=== PATIENT | female | born 2000 | race Caucasian/White ===

== ENCOUNTER 2023-10-01 11:27 | Emergency (ER) | payer BC, OTHER ==
[2023-10-01 12:30] LABS: EOSINOPHILS % (AUTO) 0.1 %; HCT - HEMATOCRIT 33.9 % (37.0-47.0); HGB - HEMOGLOBIN 10.2 g/dL (12.0-16.0); LYMPHOCYTES # (AUTO) 1.9 10^3/uL (1.5-3.5); LYMPHOCYTES % (AUTO) 18.4 %; MEAN CORPUSCULAR HGB CONC 30.1 g/dL (32.0-36.0); MEAN CORPUSCULAR VOLUME 79.8 fL (81.0-99.0); MEAN PLATELET VOLUME 10.8 fL (7.9-10.8); MONOCYTES # (AUTO) 1.1 10^3/uL (0.0-1.0); MONOCYTES % (AUTO) 10.8 %; NEUTROPHILS # (AUTO) 7.2 10^3/uL (1.5-6.6); NEUTROPHILS % (AUTO) 70.3 %; PLT - PLATELET COUNT 267 10^3/uL (130-450); RED BLOOD COUNT 4.25 10^6/uL (4.20-5.40); RED CELL DISTRIBUTION WIDTH 16.5 % (12.0-15.0); WHITE BLOOD COUNT 10.2 x10^3/uL (4.8-10.8)
[2023-10-01 12:33] LABS: BILIRUBIN,URINE NEGATIVE (NEGATIVE); GLUCOSE, URINE (UA) NEGATIVE (NEGATIVE); KETONES,URINE (UA) NEGATIVE (NEGATIVE); LEUKOCYTE ESTERASE, URINE LARGE (NEGATIVE); NITRITE,URINE POSITIVE (NEGATIVE); OCCULT BLOOD,URINE SMALL (NEGATIVE); PROTEIN,URINE 100 mg/dL (NEGATIVE); UROBILINOGEN,URINE 0.2 (NORMAL) E.U./dL (NORMAL)
[2023-10-01 12:35] LABS: CLARITY,URINE CLOUDY (CLEAR)
[2023-10-01 12:36] LABS: HCG UR QUAL NEGATIVE
[2023-10-01 12:40] LABS: BACTERIA,URINE Moderate /HPF (None Seen); SQUAMOUS EPITHELIAL CELL,UR RARE Squamous (<= Few); WBC CLUMPS,URINE PRESENT; WBC,URINE >25 /HPF (0-5)
[2023-10-01 12:51] LABS: ALBUMIN 4.1 g/dL (3.2-5.5); ALBUMIN/GLOBULIN RATIO 1.4 (1.0-2.2); BILIRUBIN,TOTAL 0.3 mg/dL (0.2-1.0); CALCIUM 9.5 mg/dL (8.5-10.3); CREATININE 0.8 mg/dL (0.6-1.3); POTASSIUM 3.9 mmol/L (3.5-4.5); TOTAL PROTEIN 7.1 g/dL (6.4-8.9)
--- NOTE | 2023-10-01 13:43 | ED Physician Documentation ---
History of Present Illness - Stated complaint Stated Complaint: LOWER BACK PX,LAGOS,NAUSEA - Chief complaint Chief Complaint: Abd Pain - Additonal information Additional information: 23-year-old female with ulcerative colitis presents emergency department for lower back pain, dysuria, fevers and chills. Patient [place] she said that she is forced to hold her urine for a very long period of time she said that she is feeling UTI symptoms now for about the last 2 weeks today started to experience bilateral flank pain generalized malaise and fevers. PD PAST MEDICAL HISTORY - Past Medical History Past Medical History: Yes GI: Ulcerative colitis - Past Surgical History Past Surgical History: No - Present Medications Home Medications: Ambulatory Orders Medication Instructions Recorded Confirmed Escitalopram [Lexapro] 10 mg PO DAILY 10/01/23 10/01/23 Naproxen [EC-Naproxen] 500 mg PO BID PRN #28 cap 10/01/23 Sulfamethox/Trimeth 800/160 1 tablet PO BID 10 Days #20 tablet 10/01/23 [Bactrim Ds] Upadacitinib [Rinvoq ER] 15 mg PO DAILY 10/01/23 10/01/23 - Allergies Allergies/Adverse Reactions: Allergies Allergy/AdvReac Type Severity Reaction Status Date / Time morphine Allergy Itching Verified 10/01/23 13:05 - Social History Does the pt smoke?: No Smoking Status: Never smoker Does the pt drink ETOH?: No Does the pt have substance abuse?: No PD ED PE NORMAL - Vitals Vital signs reviewed: Yes - General General: Alert and oriented X 3, No acute distress, Well developed/nourished - Cardiac Cardiac: RRR, No murmur, No gallop - Respiratory Respiratory: No respiratory distress, Clear bilaterally - Abdomen Abdomen: Other (Suprapubic tenderness) - Back Back: Other (Bilateral CVA tenderness) - Derm Derm: Normal color, Warm and dry, No rash - Extremities Extremities: No deformity, No edema - Psych Psych: Normal mood, Normal affect Results - Vitals Vitals: Vital Signs - 24 hr 10/01/23 10/01/23 10/01/23 11:54 13:58 15:15 Temperature 36.3 C L Heart Rate 87 64 87 Respiratory 18 16 16 Rate Blood Pressure 97/61 97/54 L 94/72 O2 Saturation 97 100 98 Oxygen O2 Source Room air - Labs Labs: Laboratory Tests 10/01/23 10/01/23 10/01/23 12:20 12:20 12:25 WBC 10.2 RBC 4.25 Hgb 10.2 L Hct 33.9 L MCV 79.8 L MCH 24.0 L MCHC 30.1 L RDW 16.5 H Plt Count 267 MPV 10.8 Neut # (Auto) 7.2 H Lymph # (Auto) 1.9 [place] # (Auto) 1.1 H Eos # (Auto) 0.0 Baso # (Auto) 0.0 Absolute Nucleated RBC 0.00 Nucleated RBC % 0.0 Sodium 134 L Potassium 3.9 Chloride 104 Carbon Dioxide 25 Anion Gap 5.0 L BUN 9 Creatinine 0.8 Estimated GFR (MDRD) 89 Glucose 108 H Calcium 9.5 Total Bilirubin 0.3 AST 16 ALT 9 L Alkaline Phosphatase 34 L Total Protein 7.1 Albumin 4.1 Globulin 3.0 Albumin/Globulin Ratio 1.4 Lipase 20 Urine Color YELLOW Urine Clarity CLOUDY Urine pH 6.0 Ur Specific [place] 1.020 Urine Protein 100 H Urine Glucose (UA) NEGATIVE Urine Ketones NEGATIVE Urine Occult Blood SMALL H Urine Nitrite POSITIVE H Urine Bilirubin NEGATIVE Urine Urobilinogen 0.2 (NORMAL) Ur Leukocyte Esterase LARGE H Urine RBC 6-10 H Urine WBC >25 H Urine WBC Clumps PRESENT Ur Squamous Epith Cells RARE Squamous Urine Bacteria Moderate H Ur Microscopic Review INDICATED Urine Culture Comments INDICATED Urine HCG, Qual NEGATIVE PD Medical Decision Making - ED course ED course: 23-year-old female presents emergency department for Bilateral CVA tenderness. Labs are complete in the emergency department she does not have any leukocytosis mild anemia hemoglobin 10.2, hematocrit 33.9 neutrophils slightly elevated at 7.2. No other significant electrolyte abnormalities. Urine was positive for nitrates and leukocytes as well as large amount of WBCs. Urine was sent for further cultures, hCG negative. I believe that the pain patient is experiencing is due to pyelonephritis. She was given a liter of IV fluids here in the emergency department one-time dose of IV Rocephin and one-time dose of oxycodone for the pain and discomfort that she is experiencing. Patient says that she has received IV fluids as well as IV antibiotics she is actually already starting to feel quite a bit better. Prescription of Bactrim was sent to patient's preferred pharmacy for her pyelonephritis. She is given strict ER return precautions and all questions have been answered safe for discharge. Departure - Departure Disposition: 01 Home, Self Care Clinical Impression: Pyelonephritis UTI (urinary tract infection) Qualifiers: Urinary tract infection type: acute pyelonephritis Qualified Code(s): N10 - Acute pyelonephritis Instructions: Urinary Tract Infecs Women, Pyelonephritis Dc Prescriptions: Sulfamethox/Trimeth 800/160 [Bactrim Ds] 1 tablet PO BID 10 Days #20 tablet Naproxen [EC-Naproxen] 500 mg PO BID PRN #28 cap PRN Reason: Pain 5-7 Comments: Thank you for trusting us with your care. We have found that you have a urinary tract infection that has advanced your kidneys you have been diagnosed with something called a pyelonephritis. We have sent your urine for culture as it will take up to 2 days for the results to come back we will call you if need to change antibiotics. We gave you a one-time dose of Rocephin here in the emergency department and I am starting you on a medication called Bactrim that you will take twice a day for the next 10 days. For your pain I have prescribed you medication called naproxen you can take 500 mg every 12 hours for pain and discomfort. With starting the antibiotics your pain should significantly improve. He can also take 1000 mg of Tylenol every 8 hours. Make sure that you are drinking plenty of water please help with your primary care provider. Please come back to the emergency department for having any worsening signs or symptoms including fevers or chills, worsening back pain or any other concerning symptoms. Wishing you speedy recovery. Forms: PCP List Discharge Date/Time: 10/01/23 15:15
[2023-10-01] MEDS: SODIUM CHLORIDE 0.9% 1,000 ML IV ONE (13:54)
[2023-10-01] MEDS: cefTRIAXone 1 GM in SODIUM CHLORIDE 0.9% MINIBAG 100 ML IV STA (13:56)
[2023-10-01] MEDS: KETOROLAC 30 MG/ML VIAL IVP STA (13:57)
[2023-10-01] MEDS: ACETAMINOPHEN 325 MG TABLET PO STA (15:08)
[2023-10-01] MEDS: oxyCODONE 5 MG TABLET PO STA (15:08)
[2023-10-01 15:30] VITALS: BP 94/72; O2SAT 98
[2023-10-01] MEDS ORDERED: LORazepam 2 MG/ML VIAL IVP STA (21:51)
[2023-10-01] MEDS ORDERED: HALOPERIDOL 5 MG/ML VIAL IVP STA (21:52)
== END 2023-10-01 15:15 | disposition home or self-care (01) ==
LOC: ED 11:27
DX: N39.0 Urinary tract infection, site not specified (principal); N12 Tubulo-interstitial nephritis, not specified as acute or chronic
CPT/HCPCS: 36415; 80053; 81001; 81025; 83690; 85025; 87086; 96365; 96375; 99283; 99284; A9270; 81003; 87077; 87181

== ENCOUNTER 2023-10-19 06:20 | Emergency (ER) | payer BC ==
[2023-10-19 07:19] LABS: ALBUMIN 4.3 g/dL (3.2-5.5); ALBUMIN/GLOBULIN RATIO 1.5 (1.0-2.2); BILIRUBIN,TOTAL 0.4 mg/dL (0.2-1.0); CALCIUM 9.9 mg/dL (8.5-10.3); CREATININE 0.8 mg/dL (0.6-1.3); POTASSIUM 3.3 mmol/L (3.5-4.5); TOTAL PROTEIN 7.1 g/dL (6.4-8.9)
--- NOTE | 2023-10-19 07:25 | ED Physician Documentation ---
PD HPI NVD - Stated complaint Stated Complaint: VOMITING/STOMACH PX - Chief complaint Chief Complaint: Abd Pain - History obtained from History obtained from: Patient - History of Present Illness Timing - onset: How many hours ago (within the past 2-3 hours, onset of cramping pain and nausea with onset of vomiting just briefly ago while in ED with friend for similar symptoms.) Timing - duration: Hours Timing - details: Abrupt onset, Still present Contributing factors: No: Bad food, Travel Improved by: No: Vomiting Similar symptoms before: Has not had sx before Review of Systems Constitutional: denies: Fever, Chills GI: denies: Diarrhea, Bloody / black stool Neurologic: denies: Focal weakness, Near syncope PD PAST MEDICAL HISTORY - Past Medical History Cardiovascular: None Respiratory: None GI: Ulcerative colitis - Past Surgical History Past Surgical History: No - Present Medications Home Medications: Ambulatory Orders Medication Instructions Recorded Confirmed Escitalopram [Lexapro] 10 mg PO DAILY 10/01/23 10/01/23 Naproxen [EC-Naproxen] 500 mg PO BID PRN #28 cap 10/01/23 Sulfamethox/Trimeth 800/160 1 tablet PO BID 10 Days #20 tablet 10/01/23 [Bactrim Ds] Upadacitinib [Rinvoq ER] 15 mg PO DAILY 10/01/23 10/01/23 Famotidine [Pepcid] 20 mg PO DAILY #20 tablet 10/19/23 Ondansetron Odt [Zofran] 4 mg TL Q6H PRN #20 tablet 10/19/23 Tramadol HCl 100 mg PO Q8H PRN #15 tablet 10/19/23 - Allergies Allergies/Adverse Reactions: Allergies Allergy/AdvReac Type Severity Reaction Status Date / Time morphine Allergy Itching Verified 10/01/23 13:05 - Social History Does the pt smoke?: No Smoking Status: Never smoker Does the pt drink ETOH?: No Does the pt have substance abuse?: No PD ED PE NORMAL - Vitals Vital signs reviewed: Yes - General General: Alert and oriented X 3, Well developed/nourished - HEENT HEENT: Ears normal, Pharynx benign - Neck Neck: Supple, no meningeal sign, No adenopathy - Cardiac Cardiac: RRR, No murmur - Respiratory Respiratory: Clear bilaterally - Abdomen Abdomen: Soft, Non tender, Non distended - Derm Derm: Normal color Results - Vitals Vitals: Oxygen O2 Source Room air - Labs Labs: Laboratory Tests 10/19/23 10/19/23 06:53 06:53 WBC 5.6 RBC 4.09 L Hgb 10.0 L Hct 32.6 L MCV 79.7 L MCH 24.4 L MCHC 30.7 L RDW 15.7 H Plt Count 330 MPV 11.4 H Neut # (Auto) 2.8 Lymph # (Auto) 2.4 [place] # (Auto) 0.4 Eos # (Auto) 0.0 Baso # (Auto) 0.0 Absolute Nucleated RBC 0.00 Nucleated RBC % 0.0 Sodium 138 Potassium 3.3 L Chloride 106 Carbon Dioxide 23 Anion Gap 9.0 BUN 14 Creatinine 0.8 Estimated GFR (MDRD) 89 Glucose 113 H Calcium 9.9 Total Bilirubin 0.4 AST 18 ALT 14 Alkaline Phosphatase 40 L Total Protein 7.1 Albumin 4.3 Globulin 2.8 Albumin/Globulin Ratio 1.5 Lipase 32 PD Medical Decision Making - ED course Complexity details: re-evaluated patient (feeling improved with IV fluids and toradol, zofran. ), considered differential (food poisoning vs viral GE. No focal tenderness to sugest GB, appy, obstruction, etc. ), d/w patient ED course: The patient started abruptly with upper to diffuse abdominal crampy pain just the last couple of hours. Associated with nausea and vomiting. She had a formed stool yesterday. Denies diarrhea as of yet but feels some lower cramping. History of ulcerative colitis in the past but she states the onset of that is typically a little more progressive and mid to lower abdomen. Her friend is here in the ER with also some abdominal pain and vomiting. The patient's assumption is viral enteritis or food related. At this point she appears fairly uncomfortable and holding an emesis bag. We can most likely be most effective with starting an IV and giving a combination of the antiemetic and pain medicine along with some anti-inflammatory. Her abdominal exam is nonfocal tenderness but more to the upper. Shared decision was to defer imaging at this point as she does not feel it is her ulcerative colitis at this point. Departure - Departure Disposition: 01 Home, Self Care Clinical Impression: Abdominal cramping, Nausea and vomiting Condition: Stable Instructions: ED Food Poison Or Gastroenteritis Prescriptions: Famotidine [Pepcid] 20 mg PO DAILY #20 tablet Tramadol HCl 100 mg PO Q8H PRN #15 tablet PRN Reason: Pain 5-7 Ondansetron Odt [Zofran] 4 mg TL Q6H PRN #20 tablet PRN Reason: Nausea / Vomiting Comments: Presume a viral stomach flu. There could become some diarrhea as well. Small frequent fluids and bland food initially. Ondansetron every 6 hours if needed for nausea and vomiting. Tylenol every 4-6 hours as needed for pains and to that add tramadol every 6 hours if needed for worse pain. You said tramadol is worked well for you in the past. Given the irritation of the stomach, it could be reasonable to go with an acid reducing medicine such as famotidine daily for a week or so. I sent your prescriptions to the [facility] pharmacy in [place]. I did write for a goodly amount of the ondansetron/Zofran in case this is a more prolonged illness. Stomach flu symptoms can last 3 to 5 days. Hopefully this will be more of a day or 2 process and certainly there would be more true if it is of food related/food poisoning. Return if not improved well or worsening symptoms again. Even though this is not feeling like your ulcerative colitis, a gastroenteritis from food or viral can trigger your UC so be wary and return if needed. Forms: PCP List Discharge Date/Time: 10/19/23 09:43
[2023-10-19 07:29] LABS: BASOPHILS % (AUTO) 0.4 %; EOSINOPHILS % (AUTO) 0.4 %; HCT - HEMATOCRIT 32.6 % (37.0-47.0); LYMPHOCYTES # (AUTO) 2.4 10^3/uL (1.5-3.5); MEAN CORPUSCULAR HEMOGLOBIN 24.4 pg (27.0-31.0); MEAN CORPUSCULAR HGB CONC 30.7 g/dL (32.0-36.0); MEAN CORPUSCULAR VOLUME 79.7 fL (81.0-99.0); MEAN PLATELET VOLUME 11.4 fL (7.9-10.8); MONOCYTES # (AUTO) 0.4 10^3/uL (0.0-1.0); MONOCYTES % (AUTO) 7.5 %; NEUTROPHILS # (AUTO) 2.8 10^3/uL (1.5-6.6); NEUTROPHILS % (AUTO) 49.3 %; PLT - PLATELET COUNT 330 10^3/uL (130-450); RED BLOOD COUNT 4.09 10^6/uL (4.20-5.40); RED CELL DISTRIBUTION WIDTH 15.7 % (12.0-15.0); WHITE BLOOD COUNT 5.6 x10^3/uL (4.8-10.8)
[2023-10-19] MEDS: ONDANSETRON 4 MG/2 ML VIAL IVP STA (07:40)
[2023-10-19] MEDS: HYDROmorphone 1 MG/ML CARPUJECT IVP STA (07:40)
[2023-10-19] MEDS: KETOROLAC 15 MG/ML VIAL IVP STA (07:40)
[2023-10-19] MEDS: SODIUM CHLORIDE 0.9% 1,000 ML IV STA (07:41)
[2023-10-19 08:52] VITALS: BP 103/67; O2SAT 98
== END 2023-10-19 09:43 | disposition home or self-care (01) ==
LOC: ED 06:20
DX: R10.9 Unspecified abdominal pain (principal); R11.2 Nausea with vomiting, unspecified
CPT/HCPCS: 36415; 80053; 83690; 85025; 96374; 99283; 99284; J1170